=== PATIENT | male | born 1985 | race Two or more races ===

== ENCOUNTER 2024-07-26 08:41 | Inpatient (IN) | payer MEDICARE, MEDICAID ==
[~2024-07-26] VITALS: Ht 180.3 cm; Wt 90.9 kg
[2024-07-26 09:20] LABS: BASOPHILS % (AUTO) 0.7 % (0.0-2.0); EOSINOPHILS % (AUTO) 0.4 % (1.0-6.0); HEMATOCRIT 44.8 % (41-53); HEMOGLOBIN 15.6 g/dL (13.5-17.5); LYMPHOCYTES # (AUTO) 1.3 K/uL (1.0-4.8); LYMPHOCYTES % (AUTO) 17.9 % (22.0-44.0); MEAN CORPUSCULAR HEMOGLOBIN 32.1 pg (26.0-34.0); MEAN CORPUSCULAR HGB CONC 34.8 G/dL (31.0-37.0); MEAN CORPUSCULAR VOLUME 92 fL (80-100); MONOCYTES # (AUTO) 0.4 K/uL (0.1-1.0); MONOCYTES % (AUTO) 6.3 % (2.0-9.0); NEUTROPHILS # (AUTO) 5.3 K/uL (1.8-7.7); NEUTROPHILS % (AUTO) 74.7 % (40.0-70.0); PLATELET COUNT (AUTO) 269 K/uL (150-450); RED BLOOD CELL COUNT(AUTO) 4.86 MIL/uL (4.50-5.90); RED CELL DISTRIBUTION WIDTH 12.1 % (11.5-14.5)
[2024-07-26 09:27] LABS: ANION GAP 10 mmol/L (8-16); CALCIUM, TOTAL 9.3 mg/dL (8.8-10.5); CARBON DIOXIDE 27 mmol/L (22-29); CHLORIDE 98 mmol/L (98-107); CREATININE 0.83 mg/dL (0.60-1.30); GLOMERULAR FILTR. RATE CALC > 60 mL/min (>60); GLUCOSE,RANDOM 117 mg/dL (70-110); POTASSIUM 3.6 mmol/L (3.5-5.1); SODIUM SERUM 135 mmol/L (136-145); UREA NITROGEN, BLOOD 2 mg/dL (7-18)
[2024-07-26 10:06] LABS: ALCOHOL, BLOOD (SERUM) < 3 mg/dL (0-10)
[2024-07-26 10:24] LABS: PH,URINE DRUG SCREEN 5.5 (5.0-8.0)
[2024-07-26 10:33] LABS: AMPHET/METH SCREEN,URINE NEGATIVE (NEGATIVE); BARBITURATE SCREEN, URINE NEGATIVE (NEGATIVE); BENZODIAZEPINES SCREEN,URINE NEGATIVE (NEGATIVE); CANNABINOID SCREEN,URINE NEGATIVE (NEGATIVE); COCAINE SCREEN,URINE NEGATIVE (NEGATIVE); METHADONE SCREEN, URINE NEGATIVE (NEGATIVE); OPIATE SCREEN,URINE NEGATIVE (NEGATIVE); PHENCYCLIDINE SCREEN,URINE NEGATIVE (NEGATIVE)
[2024-07-26 10:43] LABS: ALCOHOL, URINE DRUG SCREEN NEGATIVE (NEGATIVE)
[2024-07-26 11:19] LABS: COVID AG,FIA SOURCE NASAL SWAB
[2024-07-26 11:55] LABS: SARS-COV2 (COVID) ANTIGEN,FIA Negative (Negative)
[2024-07-26] MEDS ORDERED: ACETAMINOPHEN 325 MG TABLET PO PRN (13:00)
[2024-07-26] MEDS ORDERED: MAGNESIUM HYDROXIDE SUSPENSION 30 ML UDCUP PO PRN (13:00)
[2024-07-26] MEDS ORDERED: LOPERAMIDE HCL 2 MG CAPSULE PO PRN (13:00)
[2024-07-26 16:51] VITALS: BP 121/91; PULSE 67; RESP 18; TEMP 98; O2SAT 98
[2024-07-26 22:19] VITALS: RESP 18
[2024-07-26 22:20] VITALS: RESP 18
[2024-07-27] MEDS: MAG HYDROX/ALUMINUM HYD/SIMETH ES 30 ML SUSPENSION UDCUP PO PRN (00:25)
[2024-07-27] MEDS: INFLUENZA VIRUS VACCINE TVS (6MO+) 2024-25/PF 45 MCG/0.5 ML SYRINGE IM. ONE (00:58)
[2024-07-27 01:00] VITALS: BP 133/81; PULSE 109; RESP 18; TEMP 97; O2SAT 98
[2024-07-27] MEDS ORDERED: ONDANSETRON HCL 4 MG/2 ML VIAL IM PRN (06:30)
[2024-07-27 08:38] LABS: ANION GAP 6 mmol/L (8-16); CARBON DIOXIDE 28 mmol/L (22-29); CHLORIDE 98 mmol/L (98-107); CREATININE 0.93 mg/dL (0.60-1.30); GLOMERULAR FILTR. RATE CALC > 60 mL/min (>60); GLUCOSE,RANDOM 103 mg/dL (70-110); LIPASE 33 U/L (16-77); SODIUM SERUM 132 mmol/L (136-145); UREA NITROGEN, BLOOD 12 mg/dL (7-18)
[2024-07-27 09:39] VITALS: BP 132/64; PULSE 86; RESP 19; TEMP 98.9; O2SAT 100
[2024-07-27 09:58] VITALS: BP 132/64; PULSE 86; RESP 19; TEMP 98.9; O2SAT 100
[2024-07-27] MEDS ORDERED: MAGNESIUM HYDROXIDE SUSPENSION 30 ML UDCUP PO PRN (12:15)
[2024-07-27] MEDS ORDERED: NICOTINE 14 MG/24 HOUR PATCH TD PRN (12:15)
[2024-07-27] MEDS ORDERED: IBUPROFEN 400 MG TABLET PO PRN (12:15)
[2024-07-27] MEDS ORDERED: DOCUSATE SODIUM 100 MG CAPSULE PO PRN (12:15)
[2024-07-27] MEDS ORDERED: ACETAMINOPHEN 325 MG TABLET PO PRN (12:15)
[2024-07-27] MEDS ORDERED: LOPERAMIDE HCL 2 MG CAPSULE PO PRN (12:15)
[2024-07-27] MEDS ORDERED: MAG HYDROX/ALUMINUM HYD/SIMETH ES 30 ML SUSPENSION UDCUP PO PRN (12:15)
[2024-07-27] MEDS ORDERED: CloNIDine HCL 0.1 MG TABLET PO PRN (12:15)
[2024-07-27] MEDS ORDERED: ALBUTEROL SULFATE HFA 90 MCG/PUFF 8 GM INHALER IH PRN (12:15)
[2024-07-27] MEDS ORDERED: GuaiFENesin/D-METHORPHAN [SUGAR-FREE] 200-20MG/10 ML SYRUP UDCUP PO PRN (12:15)
[2024-07-27] MEDS ORDERED: PETROLATUM,WHITE 28 GM JELLY TP PRN (12:15)
[2024-07-27] MEDS ORDERED: ONDANSETRON 4 MG TABLET PO PRN (12:15)
[2024-07-27 20:55] VITALS: BP 113/79; PULSE 89; RESP 18; TEMP 97.3; O2SAT 97
[2024-07-27] MEDS: LORazepam 2 MG TABLET PO PRN (22:03)
[2024-07-27] MEDS: HALOPERIDOL 5 MG TABLET PO PRN (22:04)
[2024-07-27] MEDS: ZOLPIDEM TARTRATE 10 MG TABLET PO PRN (23:04)
[2024-07-28 07:57] LABS: ANION GAP 9 mmol/L (8-16); CALCIUM, TOTAL 8.4 mg/dL (8.8-10.5); CARBON DIOXIDE 26 mmol/L (22-29); CHLORIDE 102 mmol/L (98-107); CHOLESTEROL 91 mg/dL (131-200); CREATININE 0.73 mg/dL (0.60-1.30); GLOMERULAR FILTR. RATE CALC > 60 mL/min (>60); GLUCOSE,RANDOM 89 mg/dL (70-110); HDL CHOLESTEROL 45 mg/dL (40-60); LDL CHOL (CALC.) 34 mg/dL (0-130); SODIUM SERUM 137 mmol/L (136-145); TRIGLYCERIDES 61 mg/dL (15-150); UREA NITROGEN, BLOOD 14 mg/dL (7-18)
[2024-07-28 08:35] LABS: T4 (THYROXINE) 7.8 mcg/dL (4.7-13.3); THYROID STIMULATING HORMONE 1.74 uIU/mL (0.36-3.74)
[2024-07-28 08:55] VITALS: BP 109/72; PULSE 86; RESP 19; TEMP 98.1; O2SAT 97
[2024-07-28 20:50] VITALS: BP 140/85; PULSE 84; RESP 19; TEMP 98.1; O2SAT 84
[2024-07-29 16:00] VITALS: BP 106/62; PULSE 80; RESP 18; TEMP 97.3; O2SAT 96
== END 2024-07-29 14:40 | disposition home or self-care (01) | DRG 885 ==
LOC: EMS 08:41 → 3EI 14:34 → 3EX 19:24
PROVIDERS: ADMIT Psychiatry & Neurology Psychiatry; ATTEND Psychiatry & Neurology Psychiatry
PROC: GZHZZZZ Group Psychotherapy (ICD-10-PCS; principal; 2024-07-27)
DX: F25.1 Schizoaffective disorder, depressive type (principal); R45.851 Suicidal ideations; E87.1 Hypo-osmolality and hyponatremia; Z20.822 Contact with and (suspected) exposure to COVID-19; F41.9 Anxiety disorder, unspecified; G47.00 Insomnia, unspecified; Z87.891 Personal history of nicotine dependence
CPT/HCPCS: 80048; 80061; 80307; 83036; 83690; 84436; 84443; 85025; 99285; G0378; G0480